=== PATIENT | female | born 1950 | race African-American/Black ===

== ENCOUNTER 2020-11-24 19:38 | Inpatient (IN) | payer MEDICARE, MEDICAID ==
[~2020-11-24] VITALS: Ht 152.4 cm; Wt 46.4 kg
[2020-11-24 21:35] LABS: BUN/Creatinine Ratio 19.8; Potassium 3.3 mmol/L (3.5-5.1)
[2020-11-24 21:43] LABS: Bilirubin, Total 0.8 mg/dL (0.2-1.0); Total Protein 8.2 g/dL (6.4-8.2)
[2020-11-24 21:44] LABS: Basophils # (auto) 0 10 ^3/uL (0-0.2); Basophils % (auto) 0.5 % (0.0-2.0); Eosinophils # (auto) 0 10 ^3/uL (0-0.8); Hemoglobin 14.6 g/dL (12.2-16.2); Lymphocytes # (auto) 1.5 10 ^3/uL (0.4-5.4); Lymphocytes % (auto) 20.8 % (10.0-50.0); Mean Corpuscular Hemoglobin 32.9 pg (28.0-32.0); Mean Corpuscular Volume 96.7 fL (80.0-100.0); Monocytes # (auto) 0.4 10 ^3/uL (0-1.3); Monocytes % (auto) 5.2 % (0.0-12.0); Neutrophils # (auto) 5.2 10 ^3/uL (1.6-8.6); Neutrophils % (auto) 73.5 % (37.0-80.0); Platelet Count (auto) 188 10^3/uL (140-450); Red Blood Cells 4.44 10^6/uL (4.0-5.20); Red Cell Distribution Width 14.1 % (11.8-14.3)
[2020-11-24] MEDS ORDERED: FUROSEMIDE 40 MG/4 ML VIAL IV ONE (21:45)
[2020-11-25] MEDS ORDERED: MORPHINE SULF INJ 2 MG/ML SYRINGE 1ML IV PRN (01:30)
[2020-11-25] MEDS ORDERED: ONDANSETRON HCL 4 MG/2 ML VIAL IV PRN (01:30)
[2020-11-25] MEDS ORDERED: TEMAZEPAM 15 MG CAP PO PRN (01:30)
[2020-11-25] MEDS ORDERED: cloNIDine HCL 0.1 MG TAB PO PRN (01:30)
[2020-11-25] MEDS ORDERED: NITROGLYCERIN 0.4 MG SL TAB SL PRN (01:30)
[2020-11-25] MEDS: cefTRIAXone 1GM/50ML D5W 50 ML IV SCH (02:00)
[2020-11-25] MEDS: AZITHROMYCIN 500MG/ 250ML 250 ML IV SCH (02:00)
[2020-11-25 06:49] VITALS: BP 136/96
[2020-11-25 07:18] VITALS: BP 136/96
[2020-11-25 08:00] VITALS: BP 126/92
[2020-11-25] MEDS ORDERED: FAMOTIDINE 20 MG TAB PO SCH (10:00)
[2020-11-25] MEDS ORDERED: ENOXAPARIN SOD 40 MG/0.4 ML SYRINGE SC SCH (10:00)
[2020-11-25] MEDS: ASPirin 81 mg TAB PO SCH (11:03)
[2020-11-25] MEDS: FUROSEMIDE 40 MG TAB PO SCH (11:04)
[2020-11-25] MEDS: FAMOTIDINE 20 MG TAB PO SCH (11:04)
[2020-11-25 13:00] VITALS: BP 124/80
[2020-11-25] MEDS ORDERED: CARVEDILOL 3.125 MG TAB PO ONE (13:15)
[2020-11-25 15:30] LABS: INR 1.08 (0.9-1.15); Partial Thromboplastin Time 31.9 sec (23.0-31.2)
[2020-11-25] MEDS ORDERED: WARFARIN SODIUM 5 MG TAB PO ONE (17:00)
[2020-11-25 17:30] VITALS: BP 127/81
[2020-11-25 18:04] LABS: Urine Bacteria NONE SEEN /hpf (None Seen); Urine Blood Negative /uL (Negative); Urine Hyaline Cast FEW /lpf (0 - 2); Urine Mucus FEW (None Seen); Urine WBC 7 /hpf (0 - 5)
[2020-11-25] MEDS: MAGNESIUM SULFATE 1GM/100ML 100 ML IV SCH ×2 (18:18→19:30)
[2020-11-25] MEDS: ATORVASTATIN 20 MG TAB PO SCH (21:23)
[2020-11-25] MEDS: CARVEDILOL 3.125 MG TAB PO SCH (21:24)
[2020-11-25 22:00] VITALS: BP 118/88
[2020-11-26 05:00] VITALS: BP 100/70
[2020-11-26 06:50] LABS: Basophils # (auto) 0 10 ^3/uL (0-0.2); Basophils % (auto) 0.5 % (0.0-2.0); Eosinophils # (auto) 0 10 ^3/uL (0-0.8); Eosinophils % (auto) 0.1 % (0.0-7.0); Hematocrit 42.4 % (36.0-46.0); Hemoglobin 14.4 g/dL (12.2-16.2); Lymphocytes # (auto) 1.6 10 ^3/uL (0.4-5.4); Lymphocytes % (auto) 28.9 % (10.0-50.0); Mean Corpuscular Hemoglobin 32.6 pg (28.0-32.0); Monocytes # (auto) 0.4 10 ^3/uL (0-1.3); Monocytes % (auto) 6.5 % (0.0-12.0); Neutrophils # (auto) 3.5 10 ^3/uL (1.6-8.6); Nucleated Red Blood Cells % 0.1 %; Platelet Count (auto) 190 10^3/uL (140-450); Red Blood Cells 4.42 10^6/uL (4.0-5.20); Red Cell Distribution Width 13.8 % (11.8-14.3); White Blood Cell 5.5 10^3/uL (4.4-10.8)
[2020-11-26 07:07] LABS: Potassium 3.5 mmol/L (3.5-5.1)
[2020-11-26 07:10] LABS: BUN/Creatinine Ratio 27.8
[2020-11-26 07:19] LABS: INR 1.05 (0.9-1.15); Partial Thromboplastin Time 28.2 sec (23.0-31.2)
[2020-11-26] MEDS: ASPirin 81 mg TAB PO SCH (08:34)
[2020-11-26] MEDS: FAMOTIDINE 20 MG TAB PO SCH (08:34)
[2020-11-26] MEDS: cefTRIAXone 1GM/50ML D5W 50 ML IV SCH (08:34)
[2020-11-26 08:57] VITALS: BP 105/62
[2020-11-26] MEDS: FUROSEMIDE 40 MG TAB PO SCH (10:00)
[2020-11-26] MEDS: CARVEDILOL 3.125 MG TAB PO SCH ×2 (10:00→22:15)
[2020-11-26] MEDS: AZITHROMYCIN 500MG/ 250ML 250 ML IV SCH (10:14)
[2020-11-26 12:40] VITALS: BP 118/78
[2020-11-26] MEDS ORDERED: METO25TA5 PO (16:05)
[2020-11-26] MEDS ORDERED: DILT60TA PO (16:05)
[2020-11-26] MEDS ORDERED: WARF4TAB33 PO (16:05)
[2020-11-26 16:34] VITALS: BP 122/71
[2020-11-26] MEDS: WARFARIN SODIUM 2 MG TAB PO ONE (17:00)
[2020-11-26 22:00] VITALS: BP 107/75
[2020-11-26] MEDS: ATORVASTATIN 20 MG TAB PO SCH (22:15)
[2020-11-27 05:00] VITALS: BP 117/71
[2020-11-27] MEDS: ACETAMINOPHEN 325 MG TAB PO PRN (05:09)
[2020-11-27 07:46] LABS: Basophils # (auto) 0 10 ^3/uL (0-0.2); Basophils % (auto) 0.4 % (0.0-2.0); Eosinophils # (auto) 0 10 ^3/uL (0-0.8); Hematocrit 39.9 % (36.0-46.0); Hemoglobin 13.7 g/dL (12.2-16.2); Lymphocytes # (auto) 1.4 10 ^3/uL (0.4-5.4); Lymphocytes % (auto) 32.6 % (10.0-50.0); Mean Corpuscular Hemoglobin 32.8 pg (28.0-32.0); Mean Corpuscular Hgb Conc. 34.3 g/dL (32.0-36.0); Mean Corpuscular Volume 95.7 fL (80.0-100.0); Monocytes # (auto) 0.3 10 ^3/uL (0-1.3); Monocytes % (auto) 5.9 % (0.0-12.0); Neutrophils # (auto) 2.7 10 ^3/uL (1.6-8.6); Neutrophils % (auto) 61.1 % (37.0-80.0); Platelet Count (auto) 178 10^3/uL (140-450); Red Blood Cells 4.17 10^6/uL (4.0-5.20); Red Cell Distribution Width 13.4 % (11.8-14.3); White Blood Cell 4.4 10^3/uL (4.4-10.8)
[2020-11-27 07:59] LABS: INR 1.06 (0.9-1.15)
[2020-11-27 08:06] LABS: Albumin 3.4 g/dL (3.4-5.0)
[2020-11-27 09:00] VITALS: BP 117/61
[2020-11-27] MEDS: ASPirin 81 mg TAB PO SCH (10:17)
[2020-11-27] MEDS: FAMOTIDINE 20 MG TAB PO SCH (10:17)
[2020-11-27] MEDS: AZITHROMYCIN 250 MG TAB PO SCH (10:17)
[2020-11-27] MEDS: FUROSEMIDE 40 MG TAB PO SCH (10:18)
[2020-11-27] MEDS: CARVEDILOL 3.125 MG TAB PO SCH ×2 (10:18→21:58)
[2020-11-27 13:00] VITALS: BP 132/72
[2020-11-27 16:59] VITALS: BP 90/56
[2020-11-27] MEDS ORDERED: WARFARIN SODIUM 2.5 MG TAB PO ONE (17:00)
[2020-11-27] MEDS: ATORVASTATIN 20 MG TAB PO SCH (21:58)
[2020-11-27 22:00] VITALS: BP 127/69
[2020-11-28 05:00] VITALS: BP 131/68
[2020-11-28 05:57] LABS: Basophils # (auto) 0 10 ^3/uL (0-0.2); Basophils % (auto) 0.4 % (0.0-2.0); Eosinophils # (auto) 0 10 ^3/uL (0-0.8); Hematocrit 40.9 % (36.0-46.0); Hemoglobin 14.1 g/dL (12.2-16.2); Lymphocytes # (auto) 1.7 10 ^3/uL (0.4-5.4); Lymphocytes % (auto) 43.3 % (10.0-50.0); Mean Corpuscular Hemoglobin 32.9 pg (28.0-32.0); Mean Corpuscular Hgb Conc. 34.5 g/dL (32.0-36.0); Mean Corpuscular Volume 95.5 fL (80.0-100.0); Monocytes # (auto) 0.2 10 ^3/uL (0-1.3); Monocytes % (auto) 5.1 % (0.0-12.0); Neutrophils % (auto) 51.2 % (37.0-80.0); Nucleated Red Blood Cells % 0.2 %; Platelet Count (auto) 186 10^3/uL (140-450); Red Blood Cells 4.28 10^6/uL (4.0-5.20); Red Cell Distribution Width 13.4 % (11.8-14.3); White Blood Cell 3.9 10^3/uL (4.4-10.8)
[2020-11-28 06:14] LABS: INR 1.1 (0.9-1.15); Partial Thromboplastin Time 28.5 sec (23.0-31.2)
[2020-11-28 06:19] LABS: Calcium 9.1 mg/dL (8.5-10.1); Potassium 3.7 mmol/L (3.5-5.1)
[2020-11-28 06:23] LABS: BUN/Creatinine Ratio 23.5
[2020-11-28 09:03] VITALS: BP 114/71
[2020-11-28] MEDS: AZITHROMYCIN 250 MG TAB PO SCH (09:11)
[2020-11-28] MEDS: CARVEDILOL 3.125 MG TAB PO SCH ×2 (09:11→22:28)
[2020-11-28] MEDS: ASPirin 81 mg TAB PO SCH (09:11)
[2020-11-28] MEDS: FUROSEMIDE 40 MG TAB PO SCH (09:12)
[2020-11-28] MEDS: FAMOTIDINE 20 MG TAB PO SCH (09:12)
[2020-11-28 13:02] VITALS: BP 120/75
[2020-11-28] MEDS ORDERED: DOCUSATE SOD 100 MG CAP PO ONE (14:00)
[2020-11-28 16:45] VITALS: BP 115/76
[2020-11-28] MEDS ORDERED: WARFARIN SODIUM 10 MG TAB PO ONE (17:00)
[2020-11-28] MEDS: ATORVASTATIN 20 MG TAB PO SCH (22:28)
[2020-11-29] MEDS: DOCUSATE SOD 100 MG CAP PO PRN ×2 (04:19→22:15)
[2020-11-29 05:03] VITALS: BP 102/56
[2020-11-29 06:22] LABS: Basophils # (auto) 0 10 ^3/uL (0-0.2); Basophils % (auto) 0.4 % (0.0-2.0); Eosinophils # (auto) 0 10 ^3/uL (0-0.8); Hematocrit 40.3 % (36.0-46.0); Lymphocytes # (auto) 1.6 10 ^3/uL (0.4-5.4); Lymphocytes % (auto) 34.3 % (10.0-50.0); Mean Corpuscular Hemoglobin 32.8 pg (28.0-32.0); Mean Corpuscular Hgb Conc. 34.6 g/dL (32.0-36.0); Mean Corpuscular Volume 94.9 fL (80.0-100.0); Monocytes # (auto) 0.3 10 ^3/uL (0-1.3); Monocytes % (auto) 5.5 % (0.0-12.0); Neutrophils # (auto) 2.8 10 ^3/uL (1.6-8.6); Neutrophils % (auto) 59.8 % (37.0-80.0); Nucleated Red Blood Cells % 0.2 %; Platelet Count (auto) 176 10^3/uL (140-450); Red Blood Cells 4.25 10^6/uL (4.0-5.20); White Blood Cell 4.7 10^3/uL (4.4-10.8)
[2020-11-29 06:41] LABS: Albumin 3.5 g/dL (3.4-5.0)
[2020-11-29 06:44] LABS: INR 1.14 (0.9-1.15)
[2020-11-29 08:45] VITALS: BP 119/76
[2020-11-29] MEDS: CARVEDILOL 3.125 MG TAB PO SCH ×2 (09:17→22:15)
[2020-11-29] MEDS: ASPirin 81 mg TAB PO SCH (09:17)
[2020-11-29] MEDS: FAMOTIDINE 20 MG TAB PO SCH (09:17)
[2020-11-29] MEDS: FUROSEMIDE 40 MG TAB PO SCH (09:17)
[2020-11-29] MEDS: AZITHROMYCIN 250 MG TAB PO SCH (09:17)
[2020-11-29] MEDS: ACETAMINOPHEN 325 MG TAB PO PRN (11:11)
[2020-11-29 12:38] VITALS: BP 112/77
[2020-11-29 13:06] VITALS: BP 112/77
[2020-11-29] MEDS ORDERED: WARFARIN SODIUM 10 MG TAB PO ONE (17:00)
[2020-11-29 22:07] VITALS: BP 118/67
[2020-11-29] MEDS: ATORVASTATIN 20 MG TAB PO SCH (22:15)
[2020-11-30 05:13] VITALS: BP 113/70
[2020-11-30 09:00] VITALS: BP 142/52
[2020-11-30 10:49] LABS: INR 1.16 (0.9-1.15)
[2020-11-30] MEDS: ASPirin 81 mg TAB PO SCH (11:19)
[2020-11-30] MEDS: AZITHROMYCIN 250 MG TAB PO SCH (11:20)
[2020-11-30] MEDS: FAMOTIDINE 20 MG TAB PO SCH (11:20)
[2020-11-30] MEDS: CARVEDILOL 3.125 MG TAB PO SCH ×2 (11:20→22:32)
[2020-11-30] MEDS: FUROSEMIDE 40 MG TAB PO SCH (11:20)
[2020-11-30 13:00] VITALS: BP 137/102
[2020-11-30 16:55] VITALS: BP 102/73
[2020-11-30] MEDS ORDERED: WARFARIN SODIUM 10 MG TAB PO ONE (17:00)
[2020-11-30 22:00] VITALS: BP 114/74
[2020-11-30] MEDS: ATORVASTATIN 20 MG TAB PO SCH (22:32)
[2020-12-01 05:00] VITALS: BP 117/54
[2020-12-01 06:06] LABS: Basophils # (auto) 0 10 ^3/uL (0-0.2); Basophils % (auto) 0.4 % (0.0-2.0); Eosinophils # (auto) 0 10 ^3/uL (0-0.8); Hematocrit 43.1 % (36.0-46.0); Hemoglobin 14.9 g/dL (12.2-16.2); Lymphocytes # (auto) 1.4 10 ^3/uL (0.4-5.4); Lymphocytes % (auto) 23.1 % (10.0-50.0); Mean Corpuscular Hgb Conc. 34.6 g/dL (32.0-36.0); Mean Corpuscular Volume 95.5 fL (80.0-100.0); Monocytes # (auto) 0.3 10 ^3/uL (0-1.3); Monocytes % (auto) 4.4 % (0.0-12.0); Neutrophils # (auto) 4.4 10 ^3/uL (1.6-8.6); Neutrophils % (auto) 72.1 % (37.0-80.0); Nucleated Red Blood Cells % 0.1 %; Platelet Count (auto) 187 10^3/uL (140-450); Red Blood Cells 4.52 10^6/uL (4.0-5.20); Red Cell Distribution Width 13.2 % (11.8-14.3); White Blood Cell 6.2 10^3/uL (4.4-10.8)
[2020-12-01 06:25] LABS: INR 1.24 (0.9-1.15)
[2020-12-01 09:00] VITALS: BP 132/89
[2020-12-01 10:20] VITALS: BP 132/89
[2020-12-01] MEDS ORDERED: WARFARIN SODIUM 10 MG TAB PO ONE (17:00)
== END 2020-12-01 10:00 | disposition left against medical advice (07) | DRG 139 ==
LOC: ER 19:38 → TELE 11-25 01:27 → TELE-EAST 11-25 06:35 → TELE-WESTW 11-25 11:01 → UNDODISIN 11-29 14:05 → TELE-WESTW 11-30 21:32
PROVIDERS: ADMIT Nurse Practitioner; ATTEND Internal Medicine
DX: J18.9 Pneumonia, unspecified organism (principal); D68.69 Other thrombophilia; I48.0 Paroxysmal atrial fibrillation; E11.22 Type 2 diabetes mellitus with diabetic chronic kidney disease; E83.41 Hypermagnesemia; I13.0 Hypertensive heart and chronic kidney disease with heart failure and stage 1 through stage 4 chronic kidney disease, or unspecified chronic kidney disease; I50.9 Heart failure, unspecified; G43.909 Migraine, unspecified, not intractable, without status migrainosus; F32.9 Major depressive disorder, single episode, unspecified; I25.10 Atherosclerotic heart disease of native coronary artery without angina pectoris; Z20.822 Contact with and (suspected) exposure to COVID-19; N18.9 Chronic kidney disease, unspecified; Z53.29 Procedure and treatment not carried out because of patient's decision for other reasons; K59.00 Constipation, unspecified; Z85.41 Personal history of malignant neoplasm of cervix uteri; Z86.73 Personal history of transient ischemic attack (TIA), and cerebral infarction without residual deficits; Z88.6 Allergy status to analgesic agent; Z90.710 Acquired absence of both cervix and uterus; Z90.49 Acquired absence of other specified parts of digestive tract; Z59.0 Homelessness; Z91.14 Patient's other noncompliance with medication regimen; Z95.2 Presence of prosthetic heart valve; Z79.01 Long term (current) use of anticoagulants; Z79.899 Other long term (current) drug therapy
CPT/HCPCS: 36415; 70450; 71046; 80048; 80053; 81001; 82040; 82565; 83036; 83605; 83735; 83880; 84443; 84484; 85025; 85610; 85730; 87081; 87426; 93005; 93306; 96365; 96368; 96375; G0378; J0696